=== PATIENT | female | born 1950 | race Caucasian/White ===

== ENCOUNTER 2017-02-22 16:33 | Emergency (ER) | payer MEDICARE ==
--- NOTE | 2017-02-22 19:27 | ERNOTE ---
Lower Extremity HPI - Narrative Date of Service: 02/22/17 - General Lower Extremities Pain: foot: left Time Seen by Provider: 02/22/17 19:15 Source: patient Exam Limitations: no limitations - Immun/Allergies/Home Medications Immunizations: IMMUNIZATION HX Immunizations Up to Date Yes History of Influenza Vaccine Yes Hx Pneumococcal Vaccination Yes Allergies/Adverse Reactions: Allergies Allergy/AdvReac Type Severity Reaction Status Date / Time No Known Allergies Allergy Verified 02/22/17 16:58 Home Medications: HOME MEDICATIONS Citalopram Hydrobromide [Celexa] 40 mg PO DAILY 10/20/15 [Last Taken Unknown] HYDROcodone/ACETAMINOPHEN [[place] 5-325] 1 tab PO Q4H PRN #40 tab 10/20/15 [Last Taken Unknown] Ibuprofen [Motrin] 200 mg PO BID PRN 10/20/15 [Last Taken Unknown] Lisinopril [Zestril] 10 mg PO DAILY 10/20/15 [Last Taken Unknown] Multivitamin [Poly-Vitamin] 1 tab PO DAILY 10/20/15 [Last Taken Unknown] Vitamin E 400 unit PO BID 10/20/15 [Last Taken Unknown] traMADol HCL [Ultram] 50 mg PO QID PRN 10/20/15 [Last Taken Unknown] Amiodarone HCl [Cordarone] 200 mg PO DAILY 02/22/17 [Last Taken Unknown] Apixaban [Eliquis] 5 mg PO DAILY 02/22/17 [Last Taken Unknown] Aspirin 81 mg PO DAILY 02/22/17 [Last Taken Unknown] Diltiazem HCl [Cardizem] 60 mg PO BID 02/22/17 [Last Taken Unknown] Furosemide 40 mg PO DAILY 02/22/17 [Last Taken Unknown] - History of Present Illness Narrative: 66 yo WF comes to ED with persistent left foot pain. It developed two days ago over the dorsum of the foot at the 2-3rd toe level. Has been using it by being on her feet but denies any direct trauma. Pain increases with dorsifleion and plantar flexion. Has noted increased swelling over the dorsum. No skin changes. Review of Systems - Review of Systems All Other Systems: All systems neg except as marked - Patient's Past Medical History Patient History - Medical: Chronic Pain, Depression Patient History - Cardiac/Respiratory: Hypertension, Hyperlipidemia Patient History - Cancer: No Hx of Cancer Patient History - Surgical Procedures: Other Patient History - Other: None LMP (females 10-50): post menopauseal - Social History Living Situations: home Psych History: Hx of Anxiety, Current tx/ever been on anti-depressants or anti- anxiety meds Smoking Status: Never smoker Alcohol Use: none Drug Use: none - Immunizations Immunizations Up to Date: Yes Hx Pneumococcal Vaccination: Yes History of Influenza Vaccine: Yes Physical Exam - Physical Exam General Appearance: Present: wd/wn, alert, no apparent distress Extremity Exam: Present: decreased range of motion - 3rd toe due to pain, other - dorsum of foot slight soft tissue swelling over distal 2-3rd metatarsal. Slight tenderness to direct pressure. ED Progress - Vital Signs Patient's Vital Signs:: I have reviewed the patient's vital signs. Vital Signs: Vital Signs 02/22/17 02/22/17 16:45 17:56 Temperature 37.3 C 36.6 C Pulse Rate 79 70 Respiratory 14 16 Rate Blood Pressure 133/83 136/69 O2 Sat by Pulse 95 95 Oximetry - X-Ray X-Ray #1 X-Ray: foot - no apparent fx- arthritis 3rd DIP - Progress/Reassessment Chief Complaint: Foot Injury/Pain Plan - Plan Plan: elevation use tylenol alternating every 3 hours with tramadol. Follow up with PCP Departure Clinical Impression: Tendonitis of foot - Departure Disposition: Home self-care Instructions: Tendinitis, [id number] Additional Instructions: Elevation/rest Use tylenol alternating with tramadol every 3 hours. Follow up with PCP. Referrals: Jocy Blevins FNP [Primary Care Provider] -
[2017-02-22 19:44] VITALS: BP 139/87
== END 2017-02-22 19:43 | disposition home or self-care (01) ==
LOC: ER 16:33
DX: M77.52 Other enthesopathy of left foot and ankle (principal); G89.29 Other chronic pain; F32.89 Other specified depressive episodes; I10 Essential (primary) hypertension; E78.5 Hyperlipidemia, unspecified